=== PATIENT | female | born 1995 | race Caucasian/White ===

== ENCOUNTER 2020-01-14 07:44 | Emergency (ER) | payer BC ==
[2020-01-14 10:09] VITALS: BP 153/100
--- NOTE | 2020-01-14 10:10 | ER Document Report ---
ED Wound - General Chief Complaint: Laceration Stated Complaint: LACERATION Time Seen by Provider: 01/14/20 09:58 Mode of Arrival: Ambulatory Information source: Patient Notes: Patient is a 24-year-old female comes emergency room complaining of laceration to her right wrist. Patient states she took a broken glass out of the sink put it in the trash and she attempted to push it down she cut on the edge of the glass. She cleaned it really well last night this occurred around 6 PM she could not come to the ER at that time to get it fixed because of having small children and no one to watch them so she waited till today approximately 9 AM she came to the emergency room and was waiting for evaluation. - HPI Patient complains to provider of: Laceration Occurred: Yesterday Onset/Duration: Sudden Quality of pain: Achy Severity: Moderate Pain Level: 3 Context: Injury Skin Temperature: Cool Skin Color: Normal Capillary refill: < 3 seconds Sensations intact: Yes Distal pulses present: Yes Associated Symptoms: None - Related Data Allergies/Adverse Reactions: No Known Allergies Allergy (Verified 09/13/12 11:41) Past Medical History - General Information source: Patient - Social History Smoking Status: Current Every Day Smoker Cigarette use (# per day): Yes - Half pack Smoking Education Provided: Yes Frequency of alcohol use: None Drug Abuse: None Lives with: Family Family History: None, Reviewed & Not Pertinent Pulmonary Medical History: Reports: Hx Asthma - Immunizations Hx Diphtheria, Pertussis, Tetanus Vaccination: Yes - 09/11/12 Review of Systems - Review of Systems Constitutional: No symptoms reported EENT: No symptoms reported Cardiovascular: No symptoms reported Respiratory: No symptoms reported Gastrointestinal: No symptoms reported Genitourinary: No symptoms reported Female Genitourinary: No symptoms reported Musculoskeletal: No symptoms reported Skin: See HPI, Other - Laceration Hematologic/Lymphatic: No symptoms reported Neurological/Psychological: No symptoms reported -: Yes All other systems reviewed and negative Physical Exam - Vital signs Vitals: Temp Pulse Resp BP Pulse Ox 98.1 F 87 14 151/103 H 100 01/14/20 07:48 01/14/20 07:48 01/14/20 07:48 01/14/20 07:48 01/14/20 07:48 Interpretation: Hypertensive - Notes Notes: PHYSICAL EXAMINATION: GENERAL: Well-appearing, well-nourished and in no acute distress. HEAD: Atraumatic, normocephalic. LUNGS: Breath sounds clear to auscultation bilaterally and equal. No wheezes rales or rhonchi. HEART: Regular rate and rhythm without murmurs Musculoskeletal: Examination patient's her concern is her right wrist she has a 2 cm cut on the little finger side at the distal portion of the forearm. It is linear in nature. Patient has cleaned it very well and has 2 paper Steri-Strips in place making the approximation very good. Removal of the Steri-Strips does show separation of the area. It is healing according to second intent at this time. Further examination of the right hand shows patient have good flexion- extension of all fingers no sign of any tendon or ligament damage. She has good cap refill in the nailbeds of all fingers of the right hand. She has full range of motion at the wrist with no sign of tendon or ligament damage. NEUROLOGICAL: . Normal speech, normal gait. Normal sensory, motor exams PSYCH: Normal mood, normal affect. SKIN: See musculoskeletal above for full description Course - Re-evaluation Re-evalutation: 01/14/20 22:47 Given the patient is way outside of the time to suture the area this occurred at approximately 6 PM the night before so is over 16 to 17 hours old. I felt it was out of the realm of the suture capabilities. We did reclean the area with Hibiclens soap let it air dry and then applied benzoin around the wound and used half-inch Steri-Strips 2 of them to get approximation. I informed patient that at this time it is too late to suture the area that it will probably open up slightly on its healing but will heal by second intent and explained this in depth to her. She primarily came here because she felt that an antibiotic was needed and I agreed so we placed her on antibiotic with a Diflucan pill. We then applied a nonstick dressing to the top with Coban. - Vital Signs Vital signs: Temp Pulse Resp BP Pulse Ox 98.2 F 81 18 153/100 H 100 01/14/20 10:08 01/14/20 10:08 01/14/20 10:08 01/14/20 10:08 01/14/20 10:08 Discharge - Discharge Clinical Impression: Laceration of right wrist Qualifiers: Encounter type: initial encounter Qualified Code(s): S61.511A - Laceration without foreign body of right wrist, initial encounter Disposition: HOME, SELF-CARE Instructions: Laceration Care ([facility]), Care of Steri-Strip Closure ([facility]) Additional Instructions: Keep areas clean and dry as possible for the next 48 hours. The Steri-Strips will fall off on their own so do not attempt to remove them. The wound is over 12 hours old so it is already healing we cannot place any sutures at this time. This means that the edges may not heal close together that is okay they will heal by what we call second intent might have a small scar there once the Steri- Strips come off he can apply McDerma this is a ointment that will help reduce the scarring. I am giving you antibiotics for any type of infection. Return to ER if you have any concerns or problems especially if you see any redness or streaking going up the arm. Prescriptions: Fluconazole [Diflucan] 150 mg PO ONCE PRN #1 tablet PRN Reason: Cephalexin Monohydrate [Keflex 500 mg Capsule] 500 mg PO Q6H 5 Days #28 capsule Forms: Smoking Cessation Education
== END 2020-01-14 10:08 | disposition home or self-care (01) ==
LOC: ER 07:44
DX: S61.511A Laceration without foreign body of right wrist, initial encounter (principal); W25.XXXA Contact with sharp glass, initial encounter; F17.210 Nicotine dependence, cigarettes, uncomplicated; J45.909 Unspecified asthma, uncomplicated
CPT/HCPCS: 99283